=== PATIENT | female | born 1985 | race Caucasian/White ===

== ENCOUNTER 2021-11-27 10:02 | Emergency (ER) | payer BC, SELFPAY ==
[2021-11-27 10:11] VITALS: BP 161/69; PULSE 110; RESP 16; TEMP 37.7; O2SAT 100
--- NOTE | 2021-11-27 10:11 | ED.SKABFB ---
HPI - Skin/Abscess/Foreign Bdy General Chief complaint: Skin/Abscess/Foreign Body Stated complaint: PAINFUL SPOT ON R LEG Time Seen by Provider: 11/27/21 10:12 Source: patient, RN notes reviewed and old records reviewed Mode of arrival: ambulatory Limitations: no limitations History of Present Illness HPI narrative: 36 year old female who presents to [facility] care with complaints of open draining lesion to right lateral lower leg measuring [id number] for the past 1 week duration with surrounding redness warmth and also some tenderness and firmness to calf area of right leg. Patient reports history of lymphedema of lower extremities and rash to right lower leg for years. Patient reports that she has been running a fever since about 0500 with chills and sweats and also headache discomfort. Patient reports plans for trip to [place] on Thursday plans for driving. Related Data Home Medications Medication Instructions Recorded Confirmed bupropion HCl mg PO 11/27/21 Allergies Allergy/AdvReac Type Severity Reaction Status Date / Time No Known Allergies Allergy Unverified 11/02/15 10:39 Review of Systems Review of Systems: CONSTITUTIONAL: Positive for fever, chills, or sweats. EYES: Denies visual changes, redness, or discharge. ENT: Denies rhinorrhea, congestion, sore throat, or otalgia. CARDIOVASCULAR: Denies chest pain, palpitations, or edema. RESPIRATORY: Denies cough or dyspnea. GASTROINTESTINAL: Denies abdominal pain, nausea, vomiting, or diarrhea. GENITOURINARY: Denies dysuria or hematuria. SKIN: Positive for rash lower right leg with open draining lesion to lateral right lower leg with surrounding redness, lymphedema present. MUSCULOSKELETAL: Denies back pain, joint pain, or myalgia. NEUROLOGIC: Positive for headache, no numbness, or weakness. PSYCHIATRIC: Positive for anxiety or depression. All systems reviewed & are unremarkable except as noted in HPI and below PMFSH Past Medical History Medical History Anxiety and depression Lymphedema UTI (urinary tract infection) Surgical History Surgical History Previous section S/P biliopancreatic diversion with duodenal switch Social History Social History Smoking status: Never smoker Alcohol intake: current Alcohol use details: rare social Substance use type: does not use Gender identity (if verbalized by the patient): Female Comments At time of signature, agree with nursing past medical, surgical, social and family history. There is no relevant family history pertinent to the presenting complaint Exam Narrative: GENERAL: Well-appearing, well-nourished, morbid obesity and in no acute distress. HEAD: Normocephalic, atraumatic. EYES: PERRLA and EOMI. ENT: Nares clear, no rhinorrhea or epistaxis. Mucous membranes moist.TM's normal with good light reflex, throat pink with no lesions or exudates NECK: Supple. no lymphadenopathy CHEST: Clear to auscultation. No respiratory distress.SAO2 100% on room air no tachypnea HEART: Regular rate and rhythm. No murmur heard. Normal peripheral pulses. ABDOMEN: Soft, nontender, nondistended, normal active bowel sounds. EXTREMITIES: Normal range of motion. Lymphedema lower extremities bilaterally SKIN: Warm, dry, 3.5cm X5cm red lesion right lower lateral leg oozing some clear drainage, with surrounding redness and some firmness of tissue and warmth, Patient also verbalizes pain to right calf region with warmth also noted. Patient has bilateral lower extremity lymphedema. NEURO: No focal deficits. Alert and oriented x3. Course Course Level of Care: Express Care Visit Vital Signs Vital signs: Vital Signs Temperature 37.7 C H 11/27/21 10:11 Pulse Rate 110 H 11/27/21 10:11 Respiratory Rate 16 11/27/21 10:11 Blood Pressure 161/69 H 11/27/21 10:11 Pulse
== END 2021-11-27 10:49 | disposition short-term general hospital (02) ==
PROVIDERS: Emergency Provider Registered Nurse
DX: L03.115 Cellulitis of right lower limb (principal); F41.9 Anxiety disorder, unspecified; F32.A Depression, unspecified; I89.0 Lymphedema, not elsewhere classified
CPT/HCPCS: 99202; G0463

== ENCOUNTER 2021-11-27 10:53 | Observation (INO) | payer BC, SELFPAY ==
--- NOTE | ~2021-11-27 | US_ITS ---
EXAMINATION: US venous doppler [facility] DATE: 11/27/2021 13:46 INDICATION: Bilateral lower limb pain TECHNIQUE: Olvera scale images without and with compression and Doppler images of the bilateral lower e xtremity veins were obtained. COMPARISON: None FINDINGS: The examination is limited by the patient's body habitus. The right distal femoral vein and calf vess els are not evaluated due to body habitus. There is right inguinal lymphadenopathy. The right common femoral vein, profunda femoral vein, proximal and mid femoral vein, and popliteal vein are patent. The left distal femoral vein and calf veins are not evaluated due to body habitus. The left common fe moral vein, profunda femoral vein, proximal and mid femoral vein, and popliteal vein vein are patent. IMPRESSION: 1. Limited evaluation of the lower extremity veins. No deep venous thrombosis identified in the visua lized veins. Reviewed, dictated and finalized at location A. IMPRESSION: 1. Limited evaluation of the lower extremity veins. No deep venous thrombosis i dentified in the visualized veins.
[2021-11-27 10:55] VITALS: BP 142/82; PULSE 110; RESP 16; TEMP 37.9; O2SAT 100
--- NOTE | 2021-11-27 12:05 | ED.SKABFB ---
HPI - Skin/Abscess/Foreign Bdy General Chief complaint: Skin/Abscess/Foreign Body Stated complaint: R CALF PAIN/SWELLING Time Seen by Provider: 11/27/21 12:04 Source: patient Mode of arrival: ambulatory Limitations: no limitations History of Present Illness HPI narrative: The patient is a 36-year-old female with a history of lymphedema, presenting to the emergency department for evaluation of right lower extremity swelling, pain. Patient reports that she was seen in urgent care this morning after having noted a lesion to her right lower extremity over the past week. Patient reports aching pain at the site as well as pain in her right calf. Patient reports subjective fever, chills. She reports nausea without vomiting. She does report decreased appetite over the past week. Patient denies history of skin infection in the past. Denies recent fall or injury. She states that she has venous stasis with history of venous grafting to the right lower extremity following her bariatric surgery last year. Patient was seen at an urgent care this morning with concern for sepsis, potential DVT and the patient was referred to this facility. Related Data Home Medications Medication Instructions Recorded Confirmed bupropion HCl mg PO 11/27/21 Allergies Allergy/AdvReac Type Severity Reaction Status Date / Time No Known Allergies Allergy Unverified 11/02/15 10:39 Review of Systems Review of Systems: CONSTITUTIONAL: Reports fever, chills EYES: Denies visual changes, redness, or discharge. ENT: Denies rhinorrhea, congestion, sore throat, or otalgia. CARDIOVASCULAR: Denies chest pain, palpitations, or edema. RESPIRATORY: Denies cough or dyspnea. GASTROINTESTINAL: Denies abdominal pain, reports nausea without vomiting or diarrhea GENITOURINARY: Denies dysuria or hematuria. SKIN: Reports redness, swelling to the right lower extremity, reports creation on the outside of the right leg MUSCULOSKELETAL: Denies back pain, joint pain, reports myalgias NEUROLOGIC: Denies headache, numbness, or weakness. [facility] Past Medical History Medical History Anxiety and depression Lymphedema UTI (urinary tract infection) Surgical History Surgical History Previous section S/P biliopancreatic diversion with duodenal switch Social History Social History Smoking status: Never smoker Alcohol intake: current Alcohol use details: rare social Substance use type: does not use Gender identity (if verbalized by the patient): Female Exam Narrative: GENERAL: Awake, alert, conversant HEAD: Normocephalic, atraumatic. EYES: PERRLA and EOMI. ENT: Nares clear, no rhinorrhea or epistaxis. Mucous membranes moist. NECK: Supple. CHEST: No respiratory distress, breathing even and non labored HEART: Tachycardic rate, sinus rhythm ABDOMEN: Obese, non distended, non tender EXTREMITIES: Normal range of motion. Bilateral lower extremity edema, there is an excoriation that is approximately 3 cm x 2 cm to the lateral aspect of the right lower extremity, with associated edema, erythema, no significant induration. No crepitus. No blisters or bullae. No petechiae. PT pulses 2+ bilaterally. SKIN: Bilateral lower extremity nonpitting edema, bilateral venous stasis changes which are chronic, acute induration, erythema to the right lower extremity NEURO:No focal deficits. Alert and oriented x3 Course Vital Signs Vital signs: Vital Signs Temperature 37.9 C H 11/27/21 10:55 Pulse Rate 110 H 11/27/21 10:55 Respiratory Rate 16 11/27/21 10:55 Blood Pressure 142/82 H 11/27/21 10:55 Pulse Oximetry 100 11/27/21 10:55 Temperature 37.9 C H 11/27/21 10:55 Pulse Rate 110 H 11/27/21 10:55 Respiratory Rate 16 11/27/21 10:55 Blood Pressure 142/82 H 11/27/21 10:55 Pulse Oximet
--- NOTE | 2021-11-27 12:37 | ECG_ITS ---
Measurements Intervals [place] Rate: 106 P: 37 WI: 143 QRS: 78 QRSD: 105 T: 29 QT: 318 QTc: 423 Interpretive Statements SINUS TACHYCARDIA ABNORMAL ECG Electronically Signed On 11-27-2021 14:49:26 CDT by Sloan Mckee D.O.
[2021-11-27 13:25] LABS: Basophils Absolute Auto 0.1 K/mm3 (0.0-0.1); Basophils Percent Auto 0.6 % (0.2-1.2); Hematocrit 41.2 % (37.0-47.0); Hemoglobin 13.5 g/dL (12.0-15.0); Immature Granulocyte Absolute 0.03 K/mm3 (0.00-0.031); Immature Granulocyte Percent A 0.4 % (0-0.5); Lymphocytes Absolute Auto 0.27 K/mm3 (0.9-3.2); Lymphocytes Percent Auto 3.2 % (18.3-44.2); Mean Corpuscular HGB Conc 32.8 g/dl (32-36); Mean Corpuscular Hemoglobin 30.2 pg (26-34); Mean Corpuscular Volume 92.2 fl (80-100); Mean Platelet Volume 10.6 fl (7.4-10.4); Monocytes Absolute Auto 0.3 K/mm3 (0.1-0.6); Neutrophils Absolute Auto 7.9 K/mm3 (1.3-6.7); Neutrophils Percent Auto 92.8 % (45.5-73.1); Platelet Count Result 175 k/mm3 (150-375); Red Blood Count 4.47 M/mm3 (4.2-5.4); Red Cell Distribution Width 12.6 % (11.5-14.5); White Blood Count 8.5 K/mm3 (4.5-10.0)
[2021-11-27 13:31] LABS: Appearance Urine Clear (Clear); Bilirubin Urine Negative (Negative); Blood Urine Negative (Negative); Color Urine Yellow (Yellow); Glucose Urine UA Negative (Negative); Ketones Urine Trace mg/dL (Negative); Leukocyte Esterase Ur Negative LEU/UL (Negative); Nitrate Urine Negative (Negative); Protein Urine Negative (Negative); Urobilinogen Urine 0.2 mg/dL (<2.0); pH Urine 7.5 (5.0-9.0)
[2021-11-27 13:35] LABS: Squamous Epithelial Cell Urine Few /hpf (Few); WBC Urine 0-3 /hpf
[2021-11-27 13:42] LABS: INR 1.2; Prothrombin Time 14.8 Seconds (11.1-14.7)
[2021-11-27 13:43] LABS: Partial Thromboplastin Time 36.4 SECONDS (22.3-36.8)
[2021-11-27 13:46] LABS: Add Urine Microscopic? YES
[2021-11-27 14:00] LABS: Alanine Aminotransferase 28 U/L (6-35); Albumin Level 5.2 g/dL (3.5-5.1); Alkaline Phosphatase 112 U/L (38-126); Anion Gap 10 mmol/L (8-16); Aspartate Amino Transferase 34 U/L (14-36); Bilirubin,Total 0.9 mg/dL (0.2-1.3); Blood Urea Nitrogen 13 mg/dL (7-17); CRP 3.8 mg/dL (<1.0); Calcium 9.2 mg/dL (8.4-10.2); Carbon Dioxide 24 mmol/L (22-30); Chloride 102 mmol/L (98-107); Estimated CRCL calculation 98 ml/min; Estimated Glomerular Filt Rate > 60; Glucose 111 mg/dL (65-110); Potassium 3.8 mmol/L (3.4-5.0); Sodium 136 mmol/L (137-145)
[2021-11-27] MEDS: ONDANSETRON INJ 4 MG/2 ML VIAL IV PUSH (14:13)
[2021-11-27 14:14] LABS: Lactic Acid Reflex 0.7 mmol/L (0.7-2.0)
[2021-11-27 14:43] VITALS: TEMP 37.6
[2021-11-27 14:51] LABS: SARS-CoV-2 RNA PCR Negative
[2021-11-27 16:27] VITALS: BP 117/58; PULSE 92; RESP 20; TEMP 37.6; O2SAT 97
--- NOTE | 2021-11-27 16:30 | PC.NURSE ---
v.o.r.b. fluid order clarification per dr. miranda. pt to receive 2 liters only of fluid bolus.
--- NOTE | 2021-11-27 17:05 | PM.IMHP ---
H&P: HPI History of Present Illness Date/Time: Patient was placed observation status for expected length of stay less than 23 hours for management, will plan to re-evaluate tomorrow for improvement. 11/27/21 17:05 Chief Complaint: Right lower extremity wound Narrative: Ms. Arthur is a 36-year-old female who presented emergency room with complaints of increasing erythema and pain to her right lower extremity. Patient states she has a known history of lymphedema and poor circulation to her right lower extremity and over the last week she has noted increasing inflammation and erythema at to the outer aspect of her right gutierrez. Patient states that time she has notice clear drainage. Patient states this morning she woke up with chills, but did not check her temperature. Patient states she was mildly nauseated but never vomited. Patient states she has also had a decreased appetite over the last week. Patient denies any chest pain, shortness breast, lightheadedness, dizziness, syncopal, or near syncopal episodes. Patient states that she has had many issues with this right lower extremity including poor circulation and she has had right vein grafting for venous stasis. Patient states she has had a wound this extremity before, but it has healed on its own. Upon evaluation in emergency room patient did have a low-grade fever of 100.2? F. patient states since being seen in the emergency room in being given and IV antibiotics she has seen improvement to this wound. Patient states that she does have a history of depression and anxiety for which he takes Wellbutrin 4. Patient states she also has a history of gastric bypass surgery and has lost over 100 lb in the last year. Patient states that she has lymphedema to bilateral lower extremities and has had vein grafting to her right lower extremity secondary to venous stasis and wound issues. Patient states she takes no medications at home except for her Wellbutrin and her daily multivitamin. Review of Systems Review of Systems: A 12 point review of systems was completed patient all pertinent positive and negative per HPI the remainder are unremarkable. [facility] Past Medical History Medical History Anxiety and depression Lymphedema UTI (urinary tract infection) Surgical History Surgical History Previous section S/P biliopancreatic diversion with duodenal switch Social History Social History Smoking status: Never smoker Alcohol intake: current Alcohol use details: rare social Substance use type: does not use Gender identity (if verbalized by the patient): Female Meds Home Medications and Allergies Home Medications Medication Instructions Recorded Confirmed Type bupropion HCl mg PO 11/27/21 History Allergies Allergy/AdvReac Type Severity Reaction Status Date / Time No Known Allergies Allergy Unverified 11/02/15 10:39 Vital Signs Vital Signs - 24 hr 11/27/21 10:55 11/27/21 16:27 Temperature 37.9 C H 37.6 C Pulse Rate 110 H 92 Respiratory Rate 16 20 Blood Pressure 142/82 H 117/58 L Pulse Oximetry 100 97 Exam Narrative: Constitutional: Patient is well-nourished in no acute distress. Patient is alert and oriented x3 HEENT: Moist mucous membranes. No scleral icterus. No lymphadenopathy. Neck: No carotid bruits noted no JVD noted Lungs: Lung sounds are clear to auscultation bilaterally. No accessory muscle use. No rhonchi, rales, or wheezes noted. Cardiovascular: Apical pulse is regular rate and rhythm. S1-S2 noted, no S3 or S4 noted. No gallops, murmurs, or rubs noted. Abdomen: Soft, round, and nontender. No palpable masses. Extremities: Patient has mild erythema and warmth noted to the lateral aspect of her right gutierrez. There is a small area that appears to be more of an abrasion
[2021-11-27 17:36] VITALS: BP 117/58; PULSE 91; RESP 16; TEMP 37.6; O2SAT 96
[2021-11-27 18:06] VITALS: BMI 47.8
[2021-11-27 18:07] VITALS: BP 115/58; PULSE 89; RESP 18; TEMP 36.9; O2SAT 100
--- NOTE | 2021-11-27 18:13 | PC.NURSE ---
This patient, Tavo Arthur, was admitted to [facility] Surg Room 313-01. Report received from MALI English. Patient/family oriented to hospital policies and general routines including ID bracelet, bed and alarms, visiting hours, pain management, procedures, bathroom and other care routines, personal items, smoking policy, room service/diet, and visiting hours. Information on how to activate the Rapid Response Team has been discussed. Patient/Family are encouraged to report perceived risks to care and to ask questions if they do not understand what they are told or what they should do.
[2021-11-27] MEDS: ACETAMINOPHEN 325 MG TABLET 650 MG PO (19:03)
[2021-11-27 22:00] VITALS: BP 122/57; PULSE 82; RESP 16; TEMP 36.6; O2SAT 100
[2021-11-28 06:00] VITALS: BP 124/55; PULSE 80; RESP 16; TEMP 36.1; O2SAT 100
--- NOTE | 2021-11-28 06:35 | PC.NURSE ---
Per shift change report. Quynh Perez. [employer] verbally ordered patients fluids to be discontinued after 2000mL bolus was given.
[2021-11-28 07:14] LABS: Basophils Percent Auto 0.7 % (0.2-1.2); Eosinophils Percent Auto 0.2 % (0-4.4); Hematocrit 33.3 % (37.0-47.0); Immature Granulocyte Absolute 0.03 K/mm3 (0.00-0.031); Immature Granulocyte Percent A 0.6 % (0-0.5); Lymphocytes Absolute Auto 0.83 K/mm3 (0.9-3.2); Lymphocytes Percent Auto 15.3 % (18.3-44.2); Mean Corpuscular Hemoglobin 30.4 pg (26-34); Mean Platelet Volume 11.2 fl (7.4-10.4); Monocytes Absolute Auto 0.4 K/mm3 (0.1-0.6); Monocytes Percent Auto 7.4 % (2.6-8.5); Neutrophils Absolute Auto 4.1 K/mm3 (1.3-6.7); Neutrophils Percent Auto 75.8 % (45.5-73.1); Platelet Count Result 150 k/mm3 (150-375); Red Blood Count 3.62 M/mm3 (4.2-5.4); Red Cell Distribution Width 12.7 % (11.5-14.5); White Blood Count 5.4 K/mm3 (4.5-10.0)
[2021-11-28 07:22] LABS: Anion Gap 7 mmol/L (8-16); Blood Urea Nitrogen 11 mg/dL (7-17); Carbon Dioxide 24 mmol/L (22-30); Chloride 105 mmol/L (98-107); Estimated CRCL calculation 109 ml/min; Estimated Glomerular Filt Rate > 60; Glucose 104 mg/dL (65-110); Magnesium 1.8 mg/dL (1.6-2.3); Potassium 3.5 mmol/L (3.4-5.0); Sodium 136 mmol/L (137-145)
[2021-11-28] MEDS: buPROPion HCL XL (24 HR) 150 MG TABCR 300 MG PO (09:12)
--- NOTE | 2021-11-28 09:45 | PM.DS ---
DS: Admitting Diagnosis Discharge Date 11/28/2145 Admitting Diagnosis Cellulitis DS: Discharge Diagnosis Discharge Diagnosis (1) Cellulitis: Code(s): L03.90 - Cellulitis, unspecified Status: Acute Assessment and Plan: Patient received vancomycin and Ancef in the emergency room Wound is not open or even seems to be an issue. Blood cultures negative Wound nurse assessed No further intervention indicated Will need follow up with primary for lymphedema clinic DS: Summary Hospital Course Hospital Course: Patient is a 36-year-old female with a past medical history of cellulitis, lymphedema, UTI, who presented to the ED with complaints complaints of a lower extremity wound. Patient was started on IV vancomycin and Ancef. Patient does have a known lymphedema and poor circulation to the right lower extremity. Patient does wear compression hose. Wound nurse did evaluate patient and no further intervention was indicated. The wound is not open, has drainage, or even looks as if it is a wound. She did state that she did have some drainage Thursday however no further opening is noted. Patient was also noted to have not been drinking a lot of fluids. Which a lot of this could have been related to dehydration. Patient feels better today and is able to walk on her legs. She is going to find a primary care provider and would like to switch to 1 closer to here and would like referral to the lymphedema clinic. Patient has been handling her own wounds and has been doing a great job of it. Patient denies any chest pain, shortness of breath, nausea, vomiting, diarrhea, constipation, weakness or fatigue. Status at Discharge Functional status at discharge: independent ambulation Overall status at discharge: patient is progressing back to baseline Time Spent with Patient Time attestation: Total time spent providing and/or coordinating discharge services: 38 minutes Time spent: Greater than 30 minutes Specific discharge activities: Diagnostic testing, chart review, developing a treatment plan, education, care coordination documentation, physical exam, result review Exam Const: General: cooperative, healthy appearing, no acute distress, well developed, alert and awake Nutritional Appearance: well nourished, obese and overweight Orientation/consciousness: oriented to person, oriented to place, oriented to time and patient oriented x3 Limitations: no limitations HENMT: Head: normal to inspection Ears: hearing grossly normal bilaterally General nose exam: Normal external nose present Mouth: Yes Normal oral and palatal mucosa present, Yes lip normal and Yes tongue normal Teeth and gingiva: abnormal tooth and associated gingiva and poor dentition Eyes: General: appearance normal, both eyes and all related structures Neck: Neck: normal visual inspection, full ROM, trachea midline and supple Chest: Chest palpation & inspection: normal inspection of the chest Resp: Effort & Inspection: normal respiratory effort and able to speak in complete sentences Auscultation: clear to auscultation bilaterally Cardio: Jugular venous distension: no JVD Rate: regular rate Rhythm: regular rhythm Heart sounds: S1 normal heart sound present and S2 normal heart sound present Peripheral pulses: Peripheral pulses 2+ throughout GI: Inspection: normal to inspection GI Palp: Yes Soft to palpation and No Tenderness to palpation present (GI) Auscultation: normal bowel sounds Skin: General skin exam: normal color and no rashes or lesions noted Lesions: no lesions Rashes: no rashes Trauma: no lacerations or abrasions Wounds: no wounds Hair: normal Nails: normal Neuro: General: oriented to person, oriented to place, oriented to time, patient oriented x3, gait normal, tone normal, moves all extremities, Normal light touch and pain sensation and CN's II-XI intact bilaterally Cranial nerves: Yes CN's II-XII intact bilaterally, Yes Equal, r
--- NOTE | 2021-12-03 10:04 | PC.NURSE ---
Blood cx are negative
== END 2021-11-28 13:05 | disposition home or self-care (01) ==
LOC: ANHED 15:29 → ANH3MEDSUR 11-28 12:44
PROVIDERS: Nurse Practitioner Adult Health; Admitting Provider Family Medicine; Emergency Provider Emergency Medicine; Visit Provider Nurse Practitioner
DX: L03.115 Cellulitis of right lower limb (principal); I89.0 Lymphedema, not elsewhere classified; I87.8 Other specified disorders of veins; F41.9 Anxiety disorder, unspecified; F32.A Depression, unspecified; Z98.84 Bariatric surgery status; Z20.822 Contact with and (suspected) exposure to COVID-19
CPT/HCPCS: 36415; 80048; 80053; 81001; 83605; 83735; 85025; 85610; 85730; 86140; 87040; 93005; 93970; 96365; 96366; 96367; 96375; 99285; A9270; C9803; G0378; J0131; J0690; J2405; J3370; J7030; U0003; U0005

== ENCOUNTER 2024-05-16 00:59 | Day surgery (SDC) | payer OTHER, SELFPAY ==
[2024-05-09 15:05] VITALS: BMI 55.2
--- NOTE | 2024-05-09 15:28 | PC.NURSE ---
Report to the Outpatient Waiting Room, entrance under the green pavilion located off [facility], at time _1130 on date _05/16/24 . Planned Procedure Time: _1330 .? Time changes happen often and if your time is changed the preop area will call you the afternoon before. - You and your visitor will be asked to self-screen and do not enter if you have any COVID symptoms. Please call surgeon if you need to reschedule. - A mask is optional within the hospital at this time. Patients may have clear liquids (water, carbonated beverages, clear teas, apple juice) until 3 hours prior to surgery with a maximum of 20 ounces. - No food from midnight until time of surgery and no smoking - Take only the following medications with a SIP of water on the morning of surgery: ___BUPROPRION, ATOMOXETINE DO NOT STOP ANY OF YOUR OTHER PRESCRIPTION MEDICATIONS PRIOR TO SURGERY EXCEPT THE FOLLOWING Medications to discontinue per physician NONE Date to take last dose____NONE Please no make-up, nail syrian, hairspray, perfume, deodorant, or body powder the day of surgery.? No jewelry (including any body piercings) or valuables the day of surgery, leave them at home.? Please take a shower or bath the night before, or the morning of, surgery with an antibacterial soap.? Wear comfortable, loose fitting clothing.? - Jewelry must be removed prior to entering the operating room.? Rings and piercings that are not removed may be cut off. - The hospital will not accept responsibility for valuables.? - Please leave all valuables, including medications, at home the day of surgery. If you are going home after surgery, a licensed funeral car driver must drive you home.? - NO public transportation without another adult if you receive anesthesia. - We recommend that an adult stay with you for 24 hours following discharge. - We also recommend that you do not drive, make important decision, drink alcoholic beverages, or take any drugs that were not prescribed by your health care provider for at least 24 hours after your discharge time. Follow any additional instructions given to you from your surgeon. Telephone instructions given to __DARRION and asked if any additional questions and then verbalized understanding. Patient advised to call surgeon office or pre surgery nurse liaison [phone] if any additional questions.
--- NOTE | 2024-05-15 15:37 | P.HP_ITS ---
H&P: HPI History of Present Illness Date/Time: 05/15/24 15:37 Chief Complaint: request for sterilization Narrative: Tavo is a 38yo P1001, who presents for surgery. She has a normal pap 02/2022. She has a Mirena IUD in place since 03/2022. She denies any regular cycles/pain. She had a gastric bypass/duodenum switch performed in 2019 and has lost 210lbs. Worried about the exchange of her IUD and no longer wanting children; but has a h/o severely heavy cycles; wanting to get tubal/ablation as she also wants all hormones out of her body. EMB was benign 04/2024. Review of Systems Constitutional: Constitutional: Denies chills, Denies fever(s) and Denies headache(s) Eyes: Eyes: Denies change in vision ENT: Denies dizziness and Denies headache(s) Cardiovascular: Cardiovascular: Denies chest pain and Denies dyspnea Respiratory: Respiratory: Denies cough and Denies dyspnea Gastrointestinal: Gastrointestinal: Denies abdominal pain and Denies change in stool character Genitourinary: Genitourinary: Denies abnormal menses, Denies pelvic pain, Denies vaginal discharge, Denies vaginal odor and Denies vaginal pruritus Neurologic: Denies dizziness and Denies headache(s) Psychiatric: Psychiatric: Denies anxiety and Denies depression [facility] Past Medical History Medical History (Updated 05/15/24 @ 15:40 by Gi Anand MD) ADHD (attention deficit hyperactivity disorder) Anxiety and depression History of endometrial biopsy (05/05/24) benign Lymphedema UTI (urinary tract infection) Surgical History Surgical History History of bunionectomy (11/2022) left foot Previous section S/P biliopancreatic diversion with duodenal switch Social History Social History Smoking status: Never smoker Alcohol intake: current Drinks per week: 1 Alcohol use details: rare social Substance use: never Substance use type: does not use Lack of Transportation: No Lack of Food: Never True Current Housing: I Have Housing Concerned About Future Housing: No Difficulty Paying Gas/Electric Bills: No Difficulty Paying for Meds: No Currently Unemployed: No Education: Associate Degree Difficulty w/ Childcare or Family Care: No Living arrangements: with family Additional living arrangements comments: single Occupation/Education: occupation 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 Gender identity (if verbalized by the patient): Female Sexual Orientation (if Verbalized by the Patient): Straight or Heterosexual Spiritual care concerns: No Meds Home Medications and Allergies Home Medications Medication Instructions Recorded Confirmed Type bupropion HCl 300 mg 24 hr tablet, 300 mg PO DAILY 11/27/21 05/09/24 History extended release levonorgestrel 21 mcg/24 hr (up to 1 device intrauterine ONCE 03/10/23 05/09/24 History 8 years) 52 mg intrauterine device (Mirena) atomoxetine 80 mg capsule 100 mg PO DAILY 04/14/24 05/09/24 History cholecalciferol (vitamin D3) 1,250 1,250 mcg PO WEEKLY 04/14/24 05/09/24 History mcg (50,000 unit) capsule spironolactone 50 mg tablet 50 mg PO DAILY #90 tabs 04/14/24 05/09/24 Rx valacyclovir 1 gram tablet 1,000 mg PO DAILY PRN HSV 04/14/24 05/09/24 History Allergies Allergy/AdvReac Type Severity Reaction Status Date / Time adhesive tape AdvReac Redness of Verified 05/05/24 09:10 Skin Exam Const: General: cooperative, comfortable, no acute distress and obese Orientation/consciousness: patient oriented x3 Resp: Effort & Inspection: normal respiratory effort Cardio: Rate: regular rate GI: Inspection: normal to inspection GI Palp: No abdominal tenderness and Yes Soft to palpation : Other: deferred to OR Skin: General skin exam: normal color Neuro: General: patient oriented x3 Extrem: General: normal to inspection Psych: Appearance: grossly normal Affect: normal affect Attitude: cooperative Assessment and Plan Assessment and plan (1) Contraception management: Qualifiers: Contraceptive encounter type: surveillance Contraceptive type: pill Qualified Code(s): Z30.41 - Encounter for surveillance of contraceptive pills Code(s): Z30.9 - Encounter for contraceptive management, unspecified Status: Acute (2) IUD (intrauterine device) in place: Code(s): Z97.5 - Presence of (intrauterine) contraceptive device Status: Acute Plan - proceed with bilateral salpingectomy, HSC, D&C, IUD removal, and endometrial ablation - Risks and benefits discussed in detail
--- NOTE | 2024-05-15 15:51 | P.PNAN_ITS ---
Anes - Eval Pre Procedure Procedure: Operation Date: 05/16/24 13:00 Proposed Procedures p Hysteroscopy Dilation and Curettage with Ana Endometrial Ablation, Intrauterine Device Removal - Gi Anand MD s Bilateral Laparoscopic Salpingectomy - Gi Anand MD Date/Time: 05/15/24 15:51 Pre Op Diagnosis: abnormal uterine bleeding, desires sterilization Patient Data Age: 38 Gender: F Height: 1.7 m Weight: 160 kg Allergies Allergy/AdvReac Type Severity Reaction Status Date / Time adhesive tape AdvReac Redness of Verified 05/05/24 09:10 Skin Home Medications Medication Instructions Recorded Confirmed Type bupropion HCl 300 mg 24 hr tablet, 300 mg PO DAILY 11/27/21 05/09/24 History extended release levonorgestrel 21 mcg/24 hr (up to 1 device intrauterine ONCE 03/10/23 05/09/24 History 8 years) 52 mg intrauterine device (Mirena) atomoxetine 80 mg capsule 100 mg PO DAILY 04/14/24 05/09/24 History cholecalciferol (vitamin D3) 1,250 1,250 mcg PO WEEKLY 04/14/24 05/09/24 History mcg (50,000 unit) capsule spironolactone 50 mg tablet 50 mg PO DAILY #90 tabs 04/14/24 05/09/24 Rx valacyclovir 1 gram tablet 1,000 mg PO DAILY PRN HSV 04/14/24 05/09/24 History Patient hx anesthesia problems: none Family hx anesthesia problems: none Results Review: All pre-operative results and documents have been reviewed as part of the pre- operative evaluation. [facility] Past Medical History Medical History ADHD (attention deficit hyperactivity disorder) Anxiety and depression History of endometrial biopsy (05/05/24) benign Lymphedema UTI (urinary tract infection) Surgical History Surgical History History of bunionectomy (11/2022) left foot Previous section S/P biliopancreatic diversion with duodenal switch Social History Social History Smoking status: Never smoker Alcohol intake: current Drinks per week: 1 Alcohol use details: rare social Substance use: never Substance use type: does not use Lack of Transportation: No Lack of Food: Never True Current Housing: I Have Housing Concerned About Future Housing: No Difficulty Paying Gas/Electric Bills: No Difficulty Paying for Meds: No Currently Unemployed: No Education: Associate Degree Difficulty w/ Childcare or Family Care: No Living arrangements: with family Additional living arrangements comments: single Occupation/Education: occupation 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
[2024-05-16] VITALS (8 sets, daily range): BP systolic 125–151; BP diastolic 63–85; PULSE 72–101; RESP 14–18; TEMP 36.4–36.9; O2SAT 99–100
--- NOTE | 2024-05-16 07:13 | WPDHPUPDATE1 ---
History and Physical Update Update Date/Time: 05/16/24 07:13 History and Physical has been reviewed, including an updated exam of the patient. There are NO changes in the patient's condition. Risks, benefits, and alternatives have been discussed and questions answered. Patient agrees to proceed with bilateral salpingectomy, HSC, D&C, IUD removal, and endometrial ablation.
[2024-05-16] MEDS: ACETAMINOPHEN 500 MG TABLET 1000 MG PO (11:18)
[2024-05-16] MEDS: LACTATED RINGERS 1,000 ML 30 ML IV CONT (11:20)
[2024-05-16] MEDS: KETOROLAC 15 MG/ML VIAL (*BKC) IV PUSH (11:25)
[2024-05-16 11:42] LABS: BEDSIDEPREGUCG Negative (Negative)
--- NOTE | 2024-05-16 11:52 | WPDANESEPPF ---
Anes - Initial Pre Proc Eval Procedure: Operation Date: 05/16/24 13:00 Proposed Procedures p Hysteroscopy Dilation and Curettage with Ana Endometrial Ablation, Intrauterine Device Removal - Gi Anand MD s Bilateral Laparoscopic Salpingectomy - Gi Anand MD Date/Time: 05/16/24 11:52 Surgeon: Gi Anand MD Pre Op Diagnosis: abnormal uterine bleeding, desires sterilization Patient Data Age: 38 Gender: F Height: 1.7 m Weight: 159.7 kg Last Vital Signs Temp 36.9 C 05/16/24 11:08 Pulse 101 H 05/16/24 11:08 Resp 18 05/16/24 11:08 BP 141/63 H 05/16/24 11:08 Pulse Ox 99 05/16/24 11:08 O2 Del Method Room Air 05/16/24 11:08 Allergies Allergy/AdvReac Type Severity Reaction Status Date / Time adhesive tape AdvReac Redness of Verified 05/16/24 11:32 Skin Home Medications Medication Instructions Recorded Confirmed Type bupropion HCl 300 mg 24 hr tablet, 300 mg PO DAILY 11/27/21 05/16/24 History extended release levonorgestrel 21 mcg/24 hr (up to 1 device intrauterine ONCE 03/10/23 05/16/24 History 8 years) 52 mg intrauterine device (Mirena) atomoxetine 80 mg capsule 100 mg PO DAILY 04/14/24 05/16/24 History cholecalciferol (vitamin D3) 1,250 1,250 mcg PO WEEKLY 04/14/24 05/16/24 History mcg (50,000 unit) capsule spironolactone 50 mg tablet 50 mg PO DAILY #90 tabs 04/14/24 05/16/24 Rx valacyclovir 1 gram tablet 1,000 mg PO DAILY PRN HSV 04/14/24 05/16/24 History Laboratory Tests 05/16/24 11:34 POC Urine HCG, Qual Negative (Negative) Patient hx anesthesia problems: none Family hx anesthesia problems: none Results Review: All pre-operative results and documents have been reviewed as part of the pre-operative evaluation. [facility] Past Medical History Medical History (Updated 05/16/24 @ 11:53 by Cheng Olmedo MD) ADHD (attention deficit hyperactivity disorder) Anxiety and depression History of endometrial biopsy (05/05/24) benign Lymphedema Morbid obesity UTI (urinary tract infection) Surgical History Surgical History History of bunionectomy (11/2022) left foot Previous section S/P biliopancreatic diversion with duodenal switch Social History Social History Smoking status: Never smoker Alcohol intake: current Drinks per week: 1 Alcohol use details: rare social Substance use: never Substance use type: does not use Lack of Transportation: No Lack of Food: Never True Current Housing: I Have Housing Concerned About Future Housing: No Difficulty Paying Gas/Electric Bills: No Difficulty Paying for Meds: No Currently Unemployed: No Education: Associate Degree Difficulty w/ Childcare or Family Care: No Living arrangements: with family Additional living arrangements comments: single Occupation/Education: occupation 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 Gender identity (if verbalized by the patient): Female Sexual Orientation (if Verbalized by the Patient): Straight or Heterosexual Spiritual care concerns: No Anes - Eval Final PreProcedure Day of Procedure 05/16/24 11:52 Patient weight: super morbidly obese Heart: regular rate and rhythm Lungs: clear to auscultation Airway: Mallampati scale class II Neurological: alert and oriented Last oral intake: >/= 8 hours ASA classification: IV Emergent: no Anesthetic plan: proceed Anesthesia type and monitoring: general ETT and standard monitoring Results Review: All pre-operative results and documents have been reviewed as part of the pre-operative evaluation. Informed Consent: The patient's anesthetic plan and its attendant risks and benefits were discussed with the patient/family/POA. Questions were solicited and answers provided to the satisfaction of the patient/family/POA.
--- NOTE | 2024-05-16 12:02 | P.PNAN_ITS ---
Anes - Initial Pre Proc Eval Procedure: Operation Date: 05/16/24 13:00 Proposed Procedures p Hysteroscopy Dilation and Curettage with Ana Endometrial Ablation, Intrauterine Device Removal - Gi Anand MD s Bilateral Laparoscopic Salpingectomy - Gi Anand MD Date/Time: 05/16/24 12:02 Surgeon: Gi Anand MD Pre Op Diagnosis: abnormal uterine bleeding, desires sterilization Patient Data Age: 38 Gender: F Height: 1.7 m Weight: 159.7 kg Last Vital Signs Temp 36.9 C 05/16/24 11:08 Pulse 101 H 05/16/24 11:08 Resp 18 05/16/24 11:08 BP 141/63 H 05/16/24 11:08 Pulse Ox 99 05/16/24 11:08 O2 Del Method Room Air 05/16/24 11:08 Allergies Allergy/AdvReac Type Severity Reaction Status Date / Time adhesive tape AdvReac Redness of Verified 05/16/24 11:32 Skin Home Medications Medication Instructions Recorded Confirmed Type bupropion HCl 300 mg 24 hr tablet, 300 mg PO DAILY 11/27/21 05/16/24 History extended release levonorgestrel 21 mcg/24 hr (up to 1 device intrauterine ONCE 03/10/23 05/16/24 History 8 years) 52 mg intrauterine device (Mirena) atomoxetine 80 mg capsule 100 mg PO DAILY 04/14/24 05/16/24 History cholecalciferol (vitamin D3) 1,250 1,250 mcg PO WEEKLY 04/14/24 05/16/24 History mcg (50,000 unit) capsule spironolactone 50 mg tablet 50 mg PO DAILY #90 tabs 04/14/24 05/16/24 Rx valacyclovir 1 gram tablet 1,000 mg PO DAILY PRN HSV 04/14/24 05/16/24 History acetaminophen 500 mg tablet 1,000 mg PO TID #60 tabs 05/16/24 Rx docusate sodium 100 mg capsule 100 mg PO BID #90 caps 05/16/24 Rx (Colace) ibuprofen 800 mg tablet 800 mg PO TID #30 tabs 05/16/24 Rx oxycodone 5 mg tablet 5 mg PO Q4H PRN pain #14 tabs 05/16/24 Rx Laboratory Tests 05/16/24 11:34 POC Urine HCG, Qual Negative (Negative) Patient hx anesthesia problems: none Family hx anesthesia problems: none Results Review: All pre-operative results and documents have been reviewed as part of the pre- operative evaluation. [facility] Past Medical History Medical History ADHD (attention deficit hyperactivity disorder) Anxiety and depression History of endometrial biopsy (05/05/24) benign Lymphedema Morbid obesity UTI (urinary tract infection) Surgical History Surgical History History of bunionectomy (11/2022) left foot Previous section S/P biliopancreatic diversion with duodenal switch Social History Social History Smoking status: Never smoker Alcohol intake: current Drinks per week: 1 Alcohol use details: rare social Substance use: never Substance use type: does not use Lack of Transportation: No Lack of Food: Never True Current Housing: I Have Housing Concerned About Future Housing: No Difficulty Paying Gas/Electric Bills: No Difficulty Paying for Meds: No Currently Unemployed: No Education: Associate Degree Difficulty w/ Childcare or Family Care: No Living arrangements: with family Additional living arrangements comments: single Occupation/Education: occupation 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 Gender identity (if verbalized by the patient): Female Sexual Orientation (if Verbalized by the Patient): Straight or Heterosexual Spiritual care concerns: No Anes - Eval Final PreProcedure Day of Procedure 05/16/24 12:02 Patient weight: morbidly obese Heart: regular rate and rhythm Lungs: clear to auscultation Airway: Mallampati scale class II Neurological: alert and oriented Last oral intake: >/= 8 hours ASA classification: III Emergent: no Anesthetic plan: proceed Anesthesia type and monitoring: general ETT and standard monitoring Results Review: All pre-operative results and documents have been reviewed as part of the pre- operative evaluation. Informed Consent: The patient's anesthetic plan and its attendant risks and benefits were discussed with the patient/family/POA. Questions were solicited and answers provided to the satisfaction of the patient/family/POA.
[2024-05-16] MEDS: ceFAZolin 2 GM/D5W 50 ML 2 GM/50 ML BAG IVPB (13:15)
[2024-05-16] MEDS: ceFAZolin 1 GM/NS 50 ML 1 GM/50 ML BAG IVPB (13:15)
[2024-05-16] MEDS: BUPIVACAINE/EPINEPHRINE 0.5% 50 ML VIAL 20 ML INFILTRATE (13:50)
--- NOTE | 2024-05-16 14:04 | P.OP_ITS ---
Procedure Note - Detailed Date of Procedure 05/16/24 Pre-op Diagnosis abnormal uterine bleeding, desires sterilization Post-op Diagnosis Same Procedure Performed Laparoscopic bilateral salpingectomy, IUD removal, Hysteroscopy, D&C, Ana endometrial ablation Surgeon Gi Anand MD Dumbwaiter Operator Nicole Anesthesia General and Local (20cc of 0.5% Marcaine w/ epi) Findings IUD strings visualized; IUD removed w/o issue (discarded). Normal uterus with normal bilateral fallopian tubes and ovaries; small simple/normal appearing cyst on the right ovary. Uterus sounded to 10cm, cervix 5cm. Normal endometrial cavity; no polyp, bilateral tubal ostia visualized. Good hemostasis at end of c ase. Fluid deficit: 0cc. Description of Procedure Tavo was taken to the operating room where she was placed under general endotracheal anesthesia without complications. She was then prepped and draped in the usual sterile fashion in the dorsal lithotomy position with her legs in low Dave stirrups and her arms tucked at her side with a strap over her chest. A time-out was performed and she received 3g Ancef. My attention was turned down below where her bladder was drained via straight catheterization. A bivalve speculum was then placed within the vagina where the cervix was easily identified. The anterior lip of the cervix was grasped with a single-tooth tenaculum, the uterus was sounded, and a diagnostic uterine manipulator was plac ed without complications. My gloves were changed and my attention was turned to her abdomen. An umbilical incision was made, and a 5 mm trocar was placed under direct visualization without complications. Once intra-abdominal placement was confirmed the abdomen was insufflated with carbon dioxide gas. She was then placed in Trendelenburg and two additional 5 mm ports were placed in the left and right lower quadrants under direct visualization without complications. The above findings were noted. The left fallopian tube was then elevated and the mesosalpinx was serially clamped, coagulated, transected using the LigaSure device until the proximal end of the fallopian tube was reached. The proximal end of the fallopian tube was cross clamped, coagulated and transected. The tube was then removed from the abdomen. The same procedure was then performed on the right side without any complications. Good hemostasis was noted. All instruments were removed from the abdomen. The insufflation was released and the trocars were removed. The 3 laparoscopic incision sites were reapproximated using 4-0 Monocryl and covered with Dermabond. The incisions were then infiltrated using 0.5% Marcaine with epi. The uterine manipulator was removed. A bivalve speculum was placed within the vagina where the cervix was easily identified. The anterior lip of the cervix was grasped with a single-tooth tenaculum. The cervix was then serially dilated to allow for the hysteroscope. The hysteroscope was advanced into the uterine cavity with the above findings noted. A curettage was then performed until a good uterine cry was felt throughout the uterus. The Ana endometrial ablation device was then placed within the endometrial cavity; set to 5cm. The procedure was performed per [facility] acturer's instructions in the correct manner without complications. Good hemostasis was noted. All instruments were removed from the vagina. Sponge, lap, instrument, and needle counts were correct at the end of the procedure. Patient was awoken from general anesthesia and taken to recovery in a stable condition with plans of same-day discharge home. Estimated Blood Loss 10 IV Fluids 800 Pathology Yes (left and right fallopian tubes, endometrial curettings) Complications No immediate complications Condition Stable Disposition Same day [facility] Billing Surgery - Charge Forward: Surgery Billing
[2024-05-16] MEDS: fentaNYL CITRATE INJ (*CRX) 100 MCG/2 ML VIAL 25 MCG IV PUSH ×3 (14:33→14:52)
[2024-05-16] MEDS: oxyCODONE HCL (*CRX) 5 MG TAB IR PO (15:05)
== END 2024-05-16 15:50 | disposition home or self-care (01) ==
PROVIDERS: Visit Provider Obstetrics & Gynecology
PROC: 0U5B8ZZ Destruction of Endometrium, Via Natural or Artificial Opening Endoscopic (ICD-10-PCS; CPT 58563; principal; 2024-05-16 13:00)
PROC: (CPT 49320; 2024-05-16 13:00)
DX: Z30.2 Encounter for sterilization (principal); F90.9 Attention-deficit hyperactivity disorder, unspecified type; F41.8 Other specified anxiety disorders; E66.01 Morbid (severe) obesity due to excess calories; Z68.43 Body mass index [BMI] 50.0-59.9, adult; Z79.891 Long term (current) use of opiate analgesic; Z79.1 Long term (current) use of non-steroidal anti-inflammatories (NSAID); Z98.890 Other specified postprocedural states; Z98.84 Bariatric surgery status; Z97.5 Presence of (intrauterine) contraceptive device
CPT/HCPCS: 58661; 58563; 58579; 88302; 88305; A9270; J0690; J1885; J2250; J2704; J3010; J7120